=== PATIENT | male | born 1990 | race Caucasian/White ===

== ENCOUNTER 2022-09-12 09:58 | Emergency (ER) | payer MEDICAID ==
[~2022-09-12] VITALS: Ht 175.3 cm; Wt 86.2 kg
[2022-09-12 10:10] VITALS: BP_SYST 125
[2022-09-12] MEDS ORDERED: IBUPROFEN 800 MG TABLET PO ONE (10:15)
[2022-09-12] MEDS ORDERED: IBUP-1969 PO (11:43)
== END 2022-09-12 11:56 | disposition home or self-care (01) ==
LOC: SED 09:58
DX: S63.655A Sprain of metacarpophalangeal joint of left ring finger, initial encounter (principal); S63.92XA Sprain of unspecified part of left wrist and hand, initial encounter; Z79.899 Other long term (current) drug therapy; W21.02XA Struck by soccer ball, initial encounter; Y93.66 Activity, soccer; Y92.89 Other specified places as the place of occurrence of the external cause; Y99.8 Other external cause status
CPT/HCPCS: 99283